=== PATIENT | male | born 1970 | race Caucasian/White ===

== ENCOUNTER → 2017-10-15 | Outpatient (CLI) | payer OTHER ==
[~2017-10-15] MED LIST: IBUP600T44 PO; OXYC-57 PO
--- NOTE | 2017-10-15 10:12 | DIAGNOSTIC IMAGING REPORT ---
R ELBOW MIN 3 VIEWS ROUTINE CLINICAL HISTORY: Right elbow pain. COMPARISON: None FINDINGS: Alignment of the right elbow is anatomic. There is no joint effusion or fracture. There is no suspicious osseous lesion. There is moderate spurring of the olecranon at the insertion of the triceps. There is calcific density along the lateral epicondyle. Joint spaces are preserved. There is mild osteophytosis of the ulnotrochlear articulation. IMPRESSION: 1. No acute fracture or joint effusion of the right elbow. 2. Calcification along the lateral epicondyle which could related to lateral epicondylitis. 3. Spurring of the olecranon at the insertion of the triceps. Electronically signed by: Jose Luis M.D. 10/15/2017 10:11 AM Dictated Date/Time: 10/15/2017 10:09 AM
== END | disposition home or self-care (01) ==
LOC: C.RAD1850 09:55
PROVIDERS: ATTEND Nurse Practitioner Family
DX: M25.521 Pain in right elbow (principal)